=== PATIENT | female | born 1980 | race Caucasian/White ===

== ENCOUNTER 2016-12-26 14:39 | Emergency (ER) | payer OTHER ==
[~2016-12-26] VITALS: Ht 165.1 cm; Wt 60.7 kg
[~2016-12-26 14:39] MED LIST: BIOTCAP PO; FLUT1SPR5 EACH NARE; GABA300C5 PO; GLYC1TAB15 PO; LITH300T PO; METR500T10 PO; MIRA33504 PO; MULTTAB6; PANT20 PO
[2016-12-26 14:44] VITALS: BP 128/93; PULSE 83; RESP 16; TEMP 97.7; O2SAT 99
[2016-12-26] MEDS ORDERED: ALUMINUM/MAGNESIUM/SIMETH 30 ML CUP PO ONE (15:00)
[2016-12-26] MEDS ORDERED: LIDOCAINE VISCOUS 2% SOLN 15 ML UDC PO ONE (15:00)
[2016-12-26] MEDS ORDERED: ONDANSETRON HCL 4 MG/2 ML VIAL IVP ONE (15:00)
[2016-12-26] MEDS ORDERED: SODIUM CHLORIDE 0.9% FLUSH 10 ML FLUSH IV FLUSH PRN (15:00)
[2016-12-26] MEDS ORDERED: LITH300C2 PO (15:00)
[2016-12-26] MEDS ORDERED: ZANT150T2 PO (15:00)
[2016-12-26] MEDS ORDERED: OMEP20TA PO (15:00)
[2016-12-26] MEDS ORDERED: LITH600C PO (15:00)
--- NOTE | 2016-12-26 15:02 | PD ---
HPI Chief Complaint: GI Complaint Time Seen by Provider: 14:51 Travel History International Travel<30 days: No Contact w/Intl Traveler<30days: No Traveled to known affect area: No History of Present Illness HPI The patient was seen and examined in the presence of the nurse. She complains of abdominal pain. Location is epigastric and right upper quadrant. Severity is moderate. Duration is 2-3 weeks. She had an outpatient ultrasound of the right upper quadrant 3 days ago but never received any results. Denies fever. Had some nausea and heartburn which is a chronic problem. She takes antiacid medicine. She says that she let out a belch that help ease some of the discomfort. That was her only alleviating factor. PFSH Past Medical History Anxiety: Yes Depression: Yes Diminished Hearing: No ?: Not LMP: YESTERDAY : 2 Para: 0 Ovarian Cysts: Yes Tubal Ligation: Yes Past Surgical History Abdominal Surgery: Yes (Laparoscopy, Essure procedure) Other Surgery: Yes (Left breast lumpectomy) Social History Alcohol Use: No (DENIES) Tobacco Use: No Substance Use: No Allergies-Medications (Allergen,Severity, Reaction): Coded Allergies: Erythromycin (Verified Allergy, Mild, DIARRHEA, 12/26/16) Penicillin (Verified Allergy, Unknown, UNKNOWN, 12/26/16) Reported Meds & Prescriptions Reported Meds & Active Scripts Active Glycopyrrolate 2 Mg Tab 2 Mg PO BID Gabapentin 300 Mg Cap 300 Mg PO TID Reported Zantac (Ranitidine HCl) 150 Mg Tab Unknown Dose PO HS Omeprazole 20 Mg Tab Unknown Dose PO DAILY [place] Carbonate 600 Mg Cap 600 Mg PO DAILY [place] Carbonate 300 Mg Cap 300 Mg PO HS Review of Systems General / Constitutional: No: Fever Eyes: No: Visual changes HENT: No: Headaches Cardiovascular: No: Chest Pain or Discomfort Respiratory: No: Shortness of Breath Gastrointestinal: Positive: Nausea, Abdominal Pain Genitourinary: No: Dysuria Musculoskeletal: No: Pain Skin: No Rash Neurologic: No: Weakness Psychiatric: No: Depression Endocrine: No: Polydipsia Hematologic/Lymphatic: No: Easy Bruising Physical Exam Narrative GENERAL: Well-nourished, well-developed patient in no apparent distress. SKIN: Focused skin assessment reveals no rash and nodules. Skin is Warm and dry. HEAD: Atraumatic. Normocephalic. EYES: Pupils equal and round. No scleral icterus. No injection or drainage. ENT: No nasal bleeding or discharge. Mucous membranes pink and moist. NECK: Trachea midline. No JVD. CARDIOVASCULAR: Regular rate and rhythm. No murmur appreciated. RESPIRATORY: No accessory muscle use. Clear to auscultation. Breath sounds equal bilaterally. GASTROINTESTINAL: Abdomen soft, epigastric and right upper quadrant tenderness but no rebound or guarding, nondistended. Hepatic and splenic margins not palpable. MUSCULOSKELETAL: No obvious deformities. No clubbing. No cyanosis. No edema. NEUROLOGICAL: Awake and alert. No obvious cranial nerve deficits. Motor grossly within normal limits. Normal speech. PSYCHIATRIC: Appropriate mood and affect; insight and judgment normal. Data Data Last Documented VS Vital Signs Date Time Temp Pulse Resp B/P Pulse Ox O2 Delivery O2 Flow Rate FiO2 12/26/16 14:44 97.7 83 16 128/93 99 Orders Complete Blood Count With Diff (12/26/16 14:58) Comprehensive Metabolic Panel (12/26/16 14:58) Lipase (12/26/16 14:58) Iv Access Insert/Monitor (12/26/16 14:58) Ondansetron Inj (Zofran Inj) (12/26/16 15:00) Sodium Chloride 0.9% Flush (Ns Flush) (12/26/16 15:00) Al-Mag Hy-Si 40-40-4 Mg/Ml Liq (Mag-Al P (12/26/16 15:00) Lidocaine 2% Viscous (Xylocaine 2% Visco (12/26/16 15:00) Labs Laboratory Tests Test 12/26/16 15:00 White Blood Count 11.8 TH/MM3 Red Blood Count 4.23 MIL/MM3 Hemoglobin 13.0 GM/DL Hematocrit 37.0 % Mean Corpuscular Volume 87.4 FL Mean Corpuscular Hemoglobin 30.8 PG Mean Corpuscular Hemoglobin 35.2 % Concent Red Cell Distribution Width 11.6 % Platelet Count 219 TH/MM3 Mean Platelet Volume 9.2 FL Neutrophils (%) (Auto) 73.1 % Lymphocytes (%) (Auto) 20.0 % Monocytes (%) (Auto) 5.8 % Eosinophils (%) (Auto) 1.1 % Basophils (%) (Auto) 0.0 % Neutrophils # (Auto) 8.6 TH/MM3 Lymphocytes # (Auto) 2.4 TH/MM3 Monocytes # (Auto) 0.7 TH/MM3 Eosinophils # (Auto) 0.1 TH/MM3 Basophils # (Auto) 0.0 TH/MM3 CBC Comment DIFF FINAL Differential Comment Sodium Level 140 MEQ/L Potassium Level 3.2 MEQ/L Chloride Level 104 MEQ/L Carbon Dioxide Level 27.7 MEQ/L Anion Gap 8 MEQ/L Blood Urea Nitrogen 10 MG/DL Creatinine 0.85 MG/DL Estimat Glomerular Filtration 76 ML/MIN Rate Random Glucose 116 MG/DL Calcium Level 8.6 MG/DL Total Bilirubin 0.5 MG/DL Aspartate Amino Transf 23 U/L (AST/SGOT) Alanine Aminotransferase 24 U/L (ALT/SGPT) Alkaline Phosphatase 59 U/L Total Protein 7.0 GM/DL Albumin 3.7 GM/DL Lipase 209 U/L [facility] Medical Decision Making Medical Screen Exam Complete: Yes Emergency Medical Condition: Yes Medical Record Reviewed: Yes Differential Diagnosis Differential diagnosis includes pancreatitis, biliary colic, hepatitis, GERD, peptic ulcer disease. Narrative Course I have reviewed the patient's electronic medical record. Patient was seen here for abdominal pain in 2012 IV placed CBC is normal Metabolic profile is normal LFTs are normal Lipase is normal I gave her a dose of IV Zofran followed by Maalox/lidocaine combination On recheck she feels improved I did review her outpatient ultrasound which was read 2 days ago. She does have gallbladder distention but there is no gallstone or per cholecystic fluid or gallbladder wall thickening to suggest acute cholecystitis Patient had significant improvement after Maalox/lidocaine which I would not expect if she was having biliary colic She is going to call her primary physician Wednesday to get follow-up and discuss the gallbladder results She declines pain and nausea medication Stable for outpatient follow-up Diagnosis Primary Impression: Epigastric pain Additional Instructions: The patient was advised to follow up with their physician and return if they worsen. Utilize a low-fat bland diet Med/Other Pt SpecificInfo: Other Disposition: 01 DISCHARGE HOME Condition: Stable John Frederick MD Dec 26, 2016 15:02
[2016-12-26 15:11] LABS: AUTOMATED NEUTROPHIL # 8.6 TH/MM3 (1.8-7.7); EOSINOPHIL # 0.1 TH/MM3 (0-0.4); EOSINOPHIL % 1.1 % (0.0-4.0); HEMO FLAGS DIFF FINAL; LYMPHOCYTE # 2.4 TH/MM3 (1.0-4.8); MEAN CELL VOLUME 87.4 FL (80.0-100.0); MEAN CORPUSCULAR HEMOGLOBIN 30.8 PG (27.0-34.0); MEAN CORPUSCULAR HGB CONC 35.2 % (32.0-36.0); MONO % 5.8 % (0.0-8.0); NEUT % 73.1 % (16.0-70.0); PLATELET COUNT 219 TH/MM3 (150-450); RED BLOOD COUNT 4.23 MIL/MM3 (4.00-5.30); RED CELL DISTRIBUTION WIDTH 11.6 % (11.6-17.2); WHITE BLOOD COUNT 11.8 TH/MM3 (4.0-11.0)
[2016-12-26 15:20] LABS: CHLORIDE 104 MEQ/L (98-107); POTASSIUM 3.2 MEQ/L (3.5-5.1); SODIUM (NA) 140 MEQ/L (136-145)
[2016-12-26 15:24] LABS: ANION GAP 8 MEQ/L (5-15); BICARBONATE 27.7 MEQ/L (21.0-32.0); BLOOD UREA NITROGEN 10 MG/DL (7-18)
[2016-12-26 15:27] LABS: ALT (GPT) 24 U/L (10-53); AST (GOT) 23 U/L (15-37); GLOMERULAR FILTRATION RATE 76 ML/MIN (>89)
[2016-12-26 15:28] LABS: TOTAL BILIRUBIN ADULT 0.5 MG/DL (0.2-1.0)
[2016-12-26 15:29] LABS: ALKALINE PHOSPHATASE 59 U/L (45-117)
[2017-01-12] MEDS ORDERED: GABA300C5 PO (09:51)
[2017-01-12] MEDS ORDERED: GLYC1TAB17 PO (09:53)
[2017-01-12] MEDS ORDERED: LACT10SO PO (09:57)
[2017-01-12] MEDS ORDERED: LINA145C PO (09:57)
[2017-01-20] MEDS ORDERED: IPRA0.06 EACH NARE (15:26)
[2017-01-20] MEDS ORDERED: DOXY100C PO (15:26)
[2017-03-02] MEDS ORDERED: LITH300C2 PO (14:06)
[2017-03-02] MEDS ORDERED: OMEP40CA2 PO (14:06)
[2017-03-08] MEDS ORDERED: LITH300T PO (23:25)
[2017-03-10] MEDS ORDERED: ALPR.5 PO (16:51)
== END 2016-12-26 16:03 | disposition home or self-care (01) ==
LOC: PHED 14:39
DX: R10.13 Epigastric pain (principal); R11.0 Nausea; R12 Heartburn; F41.9 Anxiety disorder, unspecified; F32.9 Major depressive disorder, single episode, unspecified
CPT/HCPCS: 80053; 83690; 85025; 96374; 99284; J2405

== ENCOUNTER 2018-04-02 09:40 | Inpatient (IN) ==
[2018-04-02] MEDS ORDERED: Sod Chloride 0.9% Inj 1,000 ML IV.SIG ONE ×2 (10:01→11:15)
[2018-04-02] MEDS ORDERED: Ketorolac Inj 30 MG/ML (IVP) Vial IV.PUSH ONE (10:01)
[2018-04-02 10:20] LABS: Baso # (Auto) 0.1 th/mm3 (0.0-0.2); Baso % (Auto) 0.4 % (0.0-2.0); Eos % (Auto) 0.1 % (0.0-4.0); Hemoglobin 11.4 gm/dL (11.6-15.3); Lymph # (Auto) 1.2 th/mm3 (1.0-4.8); Lymph % (Auto) 3.6 % (9.0-44.0); Mean Corpuscular HGB Conc 33.7 % (32.0-36.0); Mean Corpuscular Hemoglobin 30.5 pg (27.0-34.0); Mean Corpuscular Volume 90.6 fL (80.0-100.0); Mean Platelet Volume 10.4 fL (7.0-11.0); Mono # (Auto) 0.6 th/mm3 (0.0-0.9); Mono % (Auto) 1.8 % (0.0-8.0); Neut # (Auto) 31.9 th/mm3 (1.8-7.7); Neut % (Auto) 94.1 % (16.0-70.0); Platelet Count 379 th/mm3 (150-450); Red Blood Count 3.75 mil/mm3 (4.00-5.30); Red Cell Distribution Width 11.9 % (11.6-17.2); White Blood Count 33.8 th/mm3 (4.0-11.0)
[2018-04-02 10:29] LABS: Potassium 3.9 meq/L (3.5-5.1)
[2018-04-02 10:32] LABS: Calcium 8.6 mg/dL (8.5-10.1)
[2018-04-02] MEDS ORDERED: Morphine Inj 4 MG/ML Vial IV.PUSH ONE ×2 (10:32→11:15)
[2018-04-02 10:33] LABS: Albumin 3.9 g/dL (3.4-5.0); Carbon Dioxide 19.3 meq/L (21.0-32.0)
[2018-04-02 10:37] LABS: Total Protein 7.7 g/dL (6.4-8.2)
[2018-04-02 11:26] LABS: Lymphocytes 4 % (9-44); Monocytes 4 % (0-8); Path Slide Review N; Platelet Morphology Normal (Normal); RBC Morphology Normal (Normal)
--- NOTE | 2018-04-02 11:30 | ED ---
HPI General Chief complaint: Abdominal Pain Stated complaint: Upper Abd pain since last night Time Seen by Provider: 04/02/18 09:54 Source: patient Mode of arrival: ambulatory Limitations: no limitations History of Present Illness HPI narrative: Patient is a 37-year-old female who comes in complaining of abdominal pain. She says this started last night, and has been severe. She did not take anything for pain at home, she says she does not like taking medications. She said she had an ultrasound of her gallbladder performed on Wednesday, but she does not know the results. She denies fever chills. She has had some nausea, but no vomiting. She denies any urinary symptoms. She says the pain is in the upper part of her abdomen and wraps around to the back as well as goes to her shoulders. Severity is moderate. Treatments prior to arrival: none Related Data Home Medications Medication Instructions Recorded Confirmed buspirone 10 mg PO BID 04/02/18 04/02/18 gabapentin 300 mg PO 5 TIMES A DAY 04/02/18 04/02/18 lithium aspartate 60 mg PO BID 04/02/18 04/02/18 omeprazole 40 mg PO DAILY 04/02/18 04/02/18 Allergies Allergy/AdvReac Type Severity Reaction Status Date / Time erythromycin base Allergy Mild DIARRHEA Verified 04/02/18 09:54 penicillin G Allergy Unknown UNKNOWN Verified 04/02/18 09:54 Review of Systems Except as stated in HPI: all other systems reviewed are negative Constitutional Denies chills and Denies fever(s) ENT Denies dizziness Cardiovascular Denies chest pain Respiratory Denies dyspnea Gastrointestinal Reports abdominal pain, Reports nausea and Denies vomiting Genitourinary Denies dysuria Musculoskeletal Denies myalgias and Denies arthralgias Integumentary/Breasts Denies change in pigmentation and Denies lesions Neurologic Denies focal weakness [facility] Medical History Medical History Bipolar 1 disorder (Acute) Fibromyalgia (Acute) GERD (gastroesophageal reflux disease) (Acute) Pelvic floor dysfunction (Acute) Surgical History Surgical History H/O laparoscopy (Acute) H/O tubal ligation (Acute) Social History Social History Substance History: No History of Abuse Second Hand Smoke Exposure: No Smoking Status: Never smoker How Often Do You Have a Drink Containing Alcohol: Never Recent Travel in [facility] within the Last 8 Weeks: No Recent Out of Country Travel within the Last 8 Weeks: No Immunization History Tetanus Immunization: Unsure Hx Influenza Vaccine This Season: No Exam Narrative Exam Narrative: GENERAL: Awake and alert, in moderate distress due to pain. SKIN: Focused skin assessment warm/dry. HEAD: Atraumatic. Normocephalic. EYES: Pupils equal and round. No scleral icterus. ENT: Mucous membranes pink and moist. NECK: Trachea midline. No JVD. CARDIOVASCULAR: Regular rate and rhythm. No murmur appreciated. RESPIRATORY: No accessory muscle use. Clear to auscultation. Breath sounds equal bilaterally. GASTROINTESTINAL: Abdomen soft, nondistended. Abdomen diffusely tender to palpation, voluntary guarding, no rebound. MUSCULOSKELETAL: No obvious deformities. No clubbing. No cyanosis. No edema. NEUROLOGICAL: Awake and alert. No obvious cranial nerve deficits. Motor grossly within normal limits. Normal speech. PSYCHIATRIC: Appropriate mood and affect; insight and judgment normal. Course Hospital Course: IV established, labs sent. Patient given IVF, Toradol. She first said she did not want pain medicine, then agreed to take some Morphine. CT abd/pelvis ordered. Reevaluation(s) Reevaluation #1: Patient has white blood cell count of 33. Lactic acid added. Patient still complaining of significant pain, says she is unable to lay down for the CAT scan. Additional morphine and Versed ordered. Time: 10:42 Reevaluation #2: Lactic acid elevated to 6.8. Additional fluid ordered. Antibiotics ordered. Time: 12:00 Reevaluation #3: CT abdomen pelvis concerning for free fluid in the abdomen. Dr. Duvall of general surgery consulted, he will take the patient to the OR. Arrangements made for emergency transfer to the main hospital. Flagyl added to Rocephin coverage. Time: 13:00 Initial Documented Vital Signs Temperature 97.8 F 04/02/18 09:50 Pulse Rate 115 H 04/02/18 09:50 Respiratory Rate 22 04/02/18 09:50 Blood Pressure 106/69 04/02/18 09:50 Pulse Oximetry 100 04/02/18 09:50 Last Documented Vital Signs Temperature 97.8 F 04/02/18 09:50 Pulse Rate 115 H 04/02/18 13:16 Respiratory Rate 20 04/02/18 13:16 Blood Pressure 109/86 04/02/18 13:16 Pulse Oximetry 98 04/02/18 13:16 Medical Decision Making MDM Narrative Medical decision making narrative: Patient is a 37-year-old female who comes in complaining of severe abdominal pain. Exam shows diffuse tenderness to palpation. IV established, labs sent. At first, patient refused pain medication. She took Toradol, then of insisted she was still in the severe pain. She was convinced to take morphine. Labs showed a white blood cell count of 33, lactic acid was added. Patient wanted to refuse CAT scan, says that she was in too much pain to lie flat. She said she would rather just follow-up with her doctor on Wednesday and have the scan done as an outpatient. I explained to her that she is very sick and we need to find the source of the infection. She was agreeable to more pain medicine. Given morphine and Versed. After these medications, we were able to obtain a CT scan that showed free fluid in her abdomen. General surgery was consulted immediately. She had already received Rocephin, Flagyl added. Dr. Duvall of general surgery will take the patient to the OR. Emergency transfer arranged with [facility]. Admitted to Dr. Duvall's service. Differential Diagnosis Differential Diagnosis: Cholecystitis versus choledocholithiasis versus appendicitis versus colitis versus ruptured viscus Medical Records Medical records reviewed: Yes I reviewed the patient's medical records. POC Test Results POC Urine Results: Negative Lab Data Lab results reviewed: Yes I reviewed the patient's lab results. Result diagrams: 04/02/18 10:15 04/02/18 10:15 Lab Results 04/02/18 04/02/18 04/02/18 Range/Units 10:15 10:15 11:25 CBC w Diff Slide review pending WBC 33.8 H (4.0-11.0) th/mm3 RBC 3.75 L (4.00-5.30) mil/mm3 Hgb 11.4 L (11.6-15.3) gm/dL Hct 34.0 L (35.0-46.0) % MCV 90.6 (80.0-100.0) fL MCH 30.5 (27.0-34.0) pg MCHC 33.7 (32.0-36.0) % RDW 11.9 (11.6-17.2) % Plt Count 379 (150-450) th/mm3 MPV 10.4 (7.0-11.0) fL Neut % (Auto) 94.1 H (16.0-70.0) % Lymph % (Auto) 3.6 L (9.0-44.0) % Piatt % (Auto) 1.8 (0.0-8.0) % Eos % (Auto) 0.1 (0.0-4.0) % Baso % (Auto) 0.4 (0.0-2.0) % Neut # (Auto) 31.9 H (1.8-7.7) th/mm3 Lymph # (Auto) 1.2 (1.0-4.8) th/mm3 Piatt # (Auto) 0.6 (0.0-0.9) th/mm3 Eos # (Auto) 0.0 (0.0-0.4) th/mm3 Baso # (Auto) 0.1 (0.0-0.2) th/mm3 WBC Differential Manual diff final Seg Neuts % (Manual) 80 H (16-70) % Band Neuts % (Manual) 12 H (0-6) % Lymphocytes % (Manual) 4 L (9-44) % Monocytes % (Manual) 4 (0-8) % Abs Neuts (Manual) 31.1 H (1.8-7.7) th/mm3 Differential Comment . Platelet Morphology Normal (Normal) RBC Morphology Normal (Normal) Sodium 137 (136-145) meq/L Potassium 3.9 (3.5-5.1) meq/L Chloride 103 (98-107) meq/L Carbon Dioxide 19.3 L (21.0-32.0) meq/L Anion Gap 15 (5-15) meq/L BUN 15 (7-18) mg/dL Creatinine 1.30 H (0.50-1.00) mg/dL Estimated GFR 46 L (>89) mL/min Random Glucose 207 H (74-106) mg/dL Lactic Acid 6.8 H* (0.4-2.0) mmol/L Calcium 8.6 (8.5-10.1) mg/dL Total Bilirubin 0.7 (0.2-1.0) mg/dL Direct Bilirubin 0.1 (0.0-0.2) mg/dL Indirect Bilirubin 0.6 (0.0-0.8) mg/dL AST 17 (15-37) U/L ALT 19 (10-53) U/L Alkaline Phosphatase 51 (45-117) U/L Total Protein 7.7 (6.4-8.2) g/dL Albumin 3.9 (3.4-5.0) g/dL Lipase 148 (73-393) U/L Ur Collection Type Urine Color (Yellw/Straw) Urine Clarity (Clear) Urine pH (5.0-8.5) Ur Specific [place] (1.002-1.035) Urine Protein (Neg-Trace) mg/dL Urine Glucose (UA) (Negative) mg/dL Urine Ketones (Negative) mg/dL Urine Occult Blood (Negative) Urine Nitrate (Negative) Urine Bilirubin (Negative) Urine Urobilinogen (Less than 2) mg/dL Ur Leukocyte Esterase (Negative) Urine RBC (0-3) /hpf Urine WBC (0-5) /hpf Ur Squamous Epith Cells (0-5) /hpf Micro UA Comment Urine Culture Comments Urine Collection Time hours 04/02/18 Range/Units 13:10 CBC w Diff WBC (4.0-11.0) th/mm3 RBC (4.00-5.30) mil/mm3 Hgb (11.6-15.3) gm/dL Hct (35.0-46.0) % MCV (80.0-100.0) fL MCH (27.0-34.0) pg MCHC (32.0-36.0) % RDW (11.6-17.2) % Plt Count (150-450) th/mm3 MPV (7.0-11.0) fL Neut % (Auto) (16.0-70.0) % Lymph % (Auto) (9.0-44.0) % [place] % (Auto) (0.0-8.0) % Eos % (Auto) (0.0-4.0) % Baso % (Auto) (0.0-2.0) % Neut # (Auto) (1.8-7.7) th/mm3 Lymph # (Auto) (1.0-4.8) th/mm3 [place] # (Auto) (0.0-0.9) th/mm3 Eos # (Auto) (0.0-0.4) th/mm3 Baso # (Auto) (0.0-0.2) th/mm3 WBC Differential Seg Neuts % (Manual) (16-70) % Band Neuts % (Manual) (0-6) % Lymphocytes % (Manual) (9-44) % Monocytes % (Manual) (0-8) % Abs Neuts (Manual) (1.8-7.7) th/mm3 Differential Comment Platelet Morphology (Normal) RBC Morphology (Normal) Sodium (136-145) meq/L Potassium (3.5-5.1) meq/L Chloride (98-107) meq/L Carbon Dioxide (21.0-32.0) meq/L Anion Gap (5-15) meq/L BUN (7-18) mg/dL Creatinine (0.50-1.00) mg/dL Estimated GFR (>89) mL/min Random Glucose (74-106) mg/dL Lactic Acid (0.4-2.0) mmol/L Calcium (8.5-10.1) mg/dL Total Bilirubin (0.2-1.0) mg/dL Direct Bilirubin (0.0-0.2) mg/dL Indirect Bilirubin (0.0-0.8) mg/dL AST (15-37) U/L ALT (10-53) U/L Alkaline Phosphatase (45-117) U/L Total Protein (6.4-8.2) g/dL Albumin (3.4-5.0) g/dL Lipase (73-393) U/L Ur Collection Type Clean catch Urine Color Yellow (Yellw/Straw) Urine Clarity Clear (Clear) Urine pH 6.0 (5.0-8.5) Ur Specific [place] Less/equal 1.005 (1.002-1.035) Urine Protein Negative (Neg-Trace) mg/dL Urine Glucose (UA) Negative (Negative) mg/dL Urine Ketones Negative (Negative) mg/dL Urine Occult Blood Negative (Negative) Urine Nitrate Negative (Negative) Urine Bilirubin Negative (Negative) Urine Urobilinogen 0.2 (Less than 2) mg/dL Ur Leukocyte Esterase Negative (Negative) Urine RBC 0-3 (0-3) /hpf Urine WBC 0-5 (0-5) /hpf Ur Squamous Epith Cells 0-5 (0-5) /hpf Micro UA Comment Culture not ind Urine Culture Comments Culture not ind Urine Collection Time 1310 hours Imaging Data Radiologist's impression: Abdomen/Pelvis CT 04/02/18 10:01 CONCLUSION: 1. Significantly abnormal exam with a large amount of free fluid identified throughout the abdomen or pelvis. There is abnormal focus of extraluminal air adjacent to a dilated segment of the duodenum. Concern is for a ruptured ulcer. 2. Displaced tubal ligation clips within the anterior pelvis and the left occlusion device appears also displaced laterally within the pelvis. Discharge Plan Discharge Disposition Patient Disposition: 30 Still Patient Discharge Condition Condition: Stable Discharge Details Diagnosis: Duodenal ulcer perforation, Sepsis, Acidosis, lactic Physicians Team ED Provider: Cinthya Samuels Primary Care Provider: Jadiel May Attending Provider: Reyes Duvall Interventions Interventions: ED Discharge Assessment Last Done: 04/02/18 13:41 Vital Signs Last Done: 04/02/18 13:16 Status ED Status: Left Department Discharge Information Discharge Date/Time: 04/02/18 13:41
[2018-04-02] MEDS ORDERED: Phenylephrine/NS 1000 MCG/10ML Syringe IV.PUSH ONE (12:00)
[2018-04-02] MEDS ORDERED: Lidocaine PF 1% Inj 5 ML Syringe INFILTRATN ONE (12:00)
--- NOTE | 2018-04-02 13:00 | CT ---
EXAM DATE: 04/02/2018 12:51 PM EDT AGE/SEX: 37 years / Female INDICATIONS: Upper Abdomen pain 1 day CLINICAL DATA: This is the patient's initial encounter. Patient reports that signs and symptoms have been present for 1 day and indicates a pain score of 10/10. MEDICAL/SURGICAL HISTORY: Gastroesophageal reflux disease. Fibromyalgia Tubal ligation. ORAL CONTRAST: No oral contrast ingested. RADIATION DOSE: 5.36 CTDI (mGy) COMPARISON: [facility], CT ABDOMEN AND PELVIS W/ CONTRAST, 01/18/2017. [facility], [place] BARIUM ENEMA-AIR CONTRAST , 02/23/2017. . TECHNIQUE: Multiple contiguous axial images were obtained through the abdomen and pelvis following b olus infusion of 98ML ml Omnipaque 350 (iohexol) nonionic water-soluble contrast as a single exam d ose. No oral contrast ingested. Using automated exposure control and adjustment of the mA and/or kV according to patient size, radiation dose was kept as low as reasonably achievable to obtain optimal diagnostic quality images. DICOM format image data is available electronically for review and compar reena. FINDINGS: This is a significantly abnormal exam. There is a large amount of free fluid identified thr oughout the abdomen and pelvis. There is an area of abnormal extraluminal air adjacent to the proxima l portion of the duodenum where there is adjacent dilation of the duodenum and dilation of the stomac h. Concern is for a ruptured ulcer. Lower Lungs: The visualized lower lungs are clear. Liver: The liver has a homogeneous density without space-occupying lesion. There is no dilation of th e biliary tree. Spleen: Homogeneous density without enlargement. Pancreas: Unremarkable without mass or calcification. Kidneys: Normal in size and shape. No evidence of mass or hydronephrosis. Adrenal Glands: Unremarkable. Aorta: The aorta and proximal iliac vessels are grossly unremarkable without aneurysmal dilation. Bowel/Mesentery: The bowel loops are grossly unremarkable. The cecum and sigmoid colon have a normal configuration. Abdominal Wall: Intact. Retroperitoneum: No evidence of adenopathy in the retrocrural, para-aortic, or deep pelvic regions. Bladder: Contours are smooth. Reproductive Organs: There are bilateral tubal ligation clips which are displaced anteriorly and sup eriorly within the pelvis. Bilateral tubal occlusion devices are present. The right device appears in a normal location the left device appears displaced into the pelvis. Inguinal: The inguinal region is unremarkable without evidence of adenopathy. Bony Structures: Unremarkable. CONCLUSION: 1. Significantly abnormal exam with a large amount of free fluid identified throughout the abdomen o r pelvis. There is abnormal focus of extraluminal air adjacent to a dilated segment of the duodenum. Concern is for a ruptured ulcer. 2. Displaced tubal ligation clips within the anterior pelvis and the left occlusion device appears a lso displaced laterally within the pelvis. Electronically signed by: Val Molina MD 04/02/2018 12:59 PM EDT
[2018-04-02] MEDS ORDERED: HYDROmorphone PF Inj 1 MG/ML Ampul IV.PUSH ONE (13:13)
[2018-04-02 13:28] LABS: Bilirubin,Urine Negative (Negative); Clarity,Urine Clear (Clear); Color,Urine Yellow (Yellw/Straw); Glucose,Urine (UA) Negative (Negative); Leukocyte Esterase,Urine Negative (Negative); Nitrite,Urine Negative (Negative); Specific Gravity,Urine Less/Equal 1.005 (1.002-1.035); Urobilinogen,Urine 0.2 mg/dL (Less than 2)
[2018-04-02 13:34] LABS: Collection Time,Urine 1310 hours; WBC,Urine 0-5 /hpf (0-5)
[2018-04-02 13:35] LABS: RBC,Urine 0-3 /hpf (0-3); Squamous Epithelial Cell,Urine 0-5 /hpf (0-5)
[2018-04-02] MEDS ORDERED: Sugammadex Inj 200 MG/2 ML Vial IV.PUSH ONE (14:48)
--- NOTE | 2018-04-02 15:08 | P.HPGS ---
History of Present Illness Service: General surgery Primary Care Physician: Jadiel May MD Chief Complaint: Abdominal pain History of Present Illness: 37-year-old female who developed severe upper abdominal pain last night associated with nausea. She presented to the emergency department and was noted to have peritoneal signs and leukocytosis of 33,000 with a lactic acid of nearly 7. CT of the abdomen and pelvis shows free fluid. She has recently been having some various abdominal pain in the left lower abdomen and in the upper abdomen on exam and her primary physician ordered a gallbladder ultrasound earlier this week. Results are not back. She takes omeprazole and she and her mother relate that she has a remote history of gastric ulcers but they are under sure if she ever had an endoscopy. The patient relates that she has history of severe constipation and "pelvic floor dysfunction". She has a bowel movement about every 5 days. Past surgical history includes laparoscopic tubal ligation. She has bipolar disorder and is on lithium. - Diagnosis (1) Perforated abdominal viscus (2) Acidosis, lactic Inpatient Certification: I certify that the inpatient services were ordered in accordance with Medicare regulations governing the order. This includes certification that hospital inpatient services are reasonable and necessary and in the case of services not specified as inpatient-only under 42 CFR 419.22(n), that they are appropriately provided as inpatient services in accordance to with the 2-midnight benchmark under 43 CFR 412.3(e) Estimated Total Length of Stay (Days): 5 Plans for Post Hospital Care: Home Review of Systems All other systems reviewed negative except as stated in HPI PMFSH - History History Provided By: Patient - Medical History Medical History: Medical History (Last Reviewed 04/02/18 @ 11:29 by Cinthya Samuels MD) Bipolar 1 disorder Fibromyalgia GERD (gastroesophageal reflux disease) Pelvic floor dysfunction - Surgical History Surgical History: Surgical History (Last Reviewed 04/02/18 @ 11:29 by Cinthya Samuels MD) H/O laparoscopy H/O tubal ligation - Tobacco History Second Hand Smoke Exposure: No Smoking Status: Never smoker - Alcohol History How Often Do You Have a Drink Containing Alcohol: Never - Substance Use History Substance History: No History of Abuse - Travel History Recent Travel in the [place] Within the Last 8 Weeks: No Recent Travel Out of the Country Within the Last 8 Weeks: No - Immunization History Tetanus Immunization: Unsure Hx Influenza Vaccine This Season: No Medications and Allergies Active Medications: Active Medications Sodium Chloride (Ns Flush) 2 ml IV.FLUSH PRN PRN PRN Reason: FLUSH AFTER USING IV ACCESS Allergies Allergy/AdvReac Type Severity Reaction Status Date / Time erythromycin base Allergy Mild DIARRHEA Verified 04/02/18 09:54 penicillin G Allergy Unknown UNKNOWN Verified 04/02/18 09:54 Home Medications Medication Instructions Recorded Confirmed Type buspirone 10 mg PO BID 04/02/18 04/02/18 History gabapentin 300 mg PO 5 TIMES A DAY 04/02/18 04/02/18 History lithium aspartate 60 mg PO BID 04/02/18 04/02/18 History omeprazole 40 mg PO DAILY 04/02/18 04/02/18 History Exam Vital signs: Vital Signs 04/02/18 09:50 04/02/18 11:06 04/02/18 11:38 Temperature 97.8 F Pulse Rate 115 H 110 H 105 H Respiratory Rate 22 20 20 Blood Pressure 106/69 114/68 107/85 Pulse Oximetry 100 100 96 04/02/18 13:07 04/02/18 13:16 Temperature Pulse Rate 115 H Respiratory Rate 7 L 20 Blood Pressure 109/86 Pulse Oximetry 98 Intake & Output 04/01/18 04/02/18 04/02/18 18:59 06:59 18:59 Weight 60.5 kg Narrative: GENERAL: Awake and alert. No acute distress. Cooperative. HEAD: Normocephalic. Atraumatic. EYES: Pupils equal round and reactive to light bilaterally. No scleral icterus. ENT: Moist oral mucosa. NECK: Trachea midline. Pulmonary: Nonlabored breathing. No respiratory distress. CARDIOVASCULAR: Regular rate and rhythm. ABDOMEN: Diffuse severe tenderness to palpation with rebound. Moderate distention. EXTREMITIES: No cyanosis or edema. SKIN: Warm, dry, nonjaundiced. Results - Results CT scan - abdomen: report reviewed, image reviewed CT scan - pelvis: report reviewed, image reviewed Caprini VTE Risk Assessment Caprini VTE Risk Assessment: No/Low Risk (score <= 1) Caprini Risk Assessment Model: Point Value = 1 Point Value = 2 Point Value = 3 Point Value = 5 Age 41-60 Minor surgery BMI > 25 kg/m2 Swollen legs Varicose veins or History of unexplained or recurrent spontaneous Oral contraceptives or hormone replacement Sepsis (< 1 month) Serious lung disease, including pneumonia (< 1 month) Abnormal pulmonary function Acute myocardial infarction Congestive heart failure (< 1 month) History of inflammatory bowel disease Medical patient at bed rest Age 61-74 Arthroscopic surgery Major open surgery (> 45 min) Laparoscopic surgery (> 45 min) Malignancy Confined to bed (> 72 hours) Immobilizing plaster cast Central venous access Age >= 75 History of VTE Family history of VTE Factor V Leiden Prothrombin [id number] Lupus anticoagulant Anticardiolipin antibodies Elevated serum homocysteine Heparin-induced thrombocytopenia Other congenital or acquired thrombophilia Stroke (< 1 month) Elective arthroplasty Hip, pelvis, or leg fracture Acute spinal cord injury (< 1 month) Prophylaxis Regimen: Total Risk Factor Score Risk Level Prophylaxis Regimen 0-1 Low Early ambulation 2 Moderate Order ONE of the following: *Sequential Compression Device (SCD) *Heparin 5000 units SQ BID 3-4 Higher Order ONE of the following medications: *Heparin 5000 units SQ TID *Enoxaparin/Lovenox 40 mg SQ daily (WT < 150 kg, CrCl > 30 mL/min) *Enoxaparin/Lovenox 30 mg SQ daily (WT < 150 kg, CrCl > 10-29 mL/min) *Enoxaparin/Lovenox 30 mg SQ BID (WT < 150 kg, CrCl > 30 mL/min) AND/OR *Sequential Compression Device (SCD) 5 or more Highest Order ONE of the following medications: *Heparin 5000 units SQ TID (Preferred with Epidurals) *Enoxaparin/Lovenox 40 mg SQ daily (WT < 150 kg, CrCl > 30 mL/min) *Enoxaparin/Lovenox 30 mg SQ daily (WT < 150 kg, CrCl > 10-29 mL/min) *Enoxaparin/Lovenox 30 mg SQ BID (WT < 150 kg, CrCl > 30 mL/min) AND *Sequential Compression Device (SCD) Assessment and Plan - Assessment (1) Perforated abdominal viscus Status: Acute (2) Acidosis, lactic Code(s): E87.2 - Acidosis Status: Acute - Plan The patient has an evaluation consistent with a perforated viscus based on exam , lab work, and CT. There is no pneumoperitoneum but there is fair amount of free fluid. Most common differential would be perforated peptic ulcer versus diverticulitis. I discussed multiple possibilities with the patient. We will proceed with diagnostic laparoscopy possible laparotomy possible bowel resection. She understands that if this is perforated diverticulitis there is a chance of requiring colostomy. Discussed the situation in detail with the patient as well as her mother and she desires to proceed to the operating room.
[2018-04-02] MEDS ORDERED: Bupivacaine/Epinephrine 0.5% Inj 50 ML Vial ONE (15:12)
[2018-04-02] MEDS ORDERED: Naloxone Inj 0.4 MG/ML Vial IV.PUSH PRN (16:27)
[2018-04-02] MEDS ORDERED: HYDROmorphone PF Inj 1 MG/ML Ampul IV.PUSH PRN (16:27)
[2018-04-02] MEDS ORDERED: Promethazine 25 MG Supp RECTAL PRN (16:27)
[2018-04-02] MEDS ORDERED: Post-op Orders (for Pharmacy) OTHER ONE (16:27)
--- NOTE | 2018-04-02 16:43 | P.OP ---
- Preoperative Diagnosis (1) Acidosis, lactic (2) Perforated abdominal viscus - Postoperative Diagnosis (1) Ovarian cyst rupture (2) Hemoperitoneum Date of procedure: 04/02/18 Procedure: Diagnostic laparoscopy Evacuation hemoperitoneum 1300cc Treatment of bleeding left ovarian cyst Anesthesia: GOMEZ Surgeon: Reyes Duvall MD Estimated blood loss (mL): 50 Pathology: none sent Operation and Findings: Operative findings: The patient had a large volume of hemoperitoneum approximately 1300 cc with the majority of it holding clotted. There was active bleeding at a fairly slow rate from the left ovary at site of a ruptured ovarian cyst. Hemostasis was achieved with electrocautery. The pneumoperitoneum was fully evacuated with the suction recovery engineer. Procedure in detail: The patient was taken to the operating room placed in supine position. General endotracheal anesthesia was induced and the abdomen was prepped and draped in usual sterile fashion. Surgical timeout was performed to verify correct patient procedure and site. Local anesthetic was injected in skin and subcutaneous tissue to the left of the umbilicus and a 5 mm incision made. 5 mm trocar inserted in direct lap scopic visualization and the abdomen insufflated to 15 mmHg with CO2 gas which the patient tolerated well. There is immediately noted to be a large volume of dark blood throughout the upper and lower abdomen with large clots in the lower abdomen. 2 more 5 mm ports were placed in the midabdomen and attention turned to the pelvis. This appeared to be likely due to a ruptured ovarian cyst and on inspection of both ovaries there was noted to be an involuted cyst in the left ovary with active bright red bleeding at a fairly slow rate. Both fallopian tubes have evidence of previous tubal ligation. Hemostasis was achieved at the site of bleeding with electrocautery. The right lower 5 mm port was changed to a 10 mm port. Using the 10 mm suction device clot and blood in the entire abdomen in all 4 quadrants is suctioned totaling at least 1300 cc in volume. The entire abdomen is then copiously irrigated until as much of the remaining blood is removed. There appears to be small amount of oozing still in the left ovary and Surgicel snow is used to provide further hemostasis. The abdomen is continued to be irrigated and on final exam there is no bleeding after removal of the Surgicel snow. I discussed with the welfare adviser on-call who is Dr. Norris about the operation and findings she recommended no further treatment if hemostasis is well achieved. At this point trochars were removed and a 12 mm fascial site closed with 0 Vicryl suture. Skin closed with subcuticular 4-0 Monocryl and Dermabond. The patient tolerated procedure well and was taken to PACU in stable condition.
[2018-04-02] MEDS ORDERED: *Meperidine Inj 25 MG/ML Vial PERIprocedural Use ONLY ONE (16:55)
[2018-04-02 17:02] LABS: Hematocrit 22.3 % (35.0-46.0); Hemoglobin 7.5 gm/dL (11.6-15.3)
[2018-04-02] MEDS ORDERED: fentaNYL Citrate Inj 100 MCG/2 ML Ampul ONE (17:05)
[2018-04-02] MEDS: Gabapentin 300 MG Capsule PO SCH ×2 (20:24→23:51)
[2018-04-02] MEDS: Senna/Docusate Sodium 8.6/50 MG Tablet PO SCH (20:24)
[2018-04-02] MEDS ORDERED: LITHIUM ASPARTATE PO SCH ×2 (21:00)
[2018-04-02 22:04] LABS: Hematocrit 21.8 % (35.0-46.0); Hemoglobin 7.3 gm/dL (11.6-15.3)
[2018-04-03] MEDS: Gabapentin 300 MG Capsule PO SCH ×5 (05:59→21:02)
[2018-04-03] MEDS ORDERED: Ibuprofen 400 MG Tablet PO PRN (09:14)
[2018-04-03] MEDS: Senna/Docusate Sodium 8.6/50 MG Tablet PO SCH ×2 (09:18→21:02)
--- NOTE | 2018-04-03 09:18 | P.PNGS ---
Subjective Interval history: Feels well. Some upper abdominal discomfort. No nausea. No flatus. Just trying some clears. Hgb last night 7.3, am pending. Physical Exam Vital signs: Vital Signs 04/02/18 09:50 04/02/18 11:06 04/02/18 11:38 Temperature 97.8 F Pulse Rate 115 H 110 H 105 H Respiratory Rate 22 20 20 Blood Pressure 106/69 114/68 107/85 Pulse Oximetry 100 100 96 04/02/18 13:07 04/02/18 13:16 04/02/18 16:45 Temperature 96.9 F L Pulse Rate 115 H 112 H Respiratory Rate 7 L 20 21 Blood Pressure 109/86 115/64 Pulse Oximetry 98 100 04/02/18 17:00 04/02/18 17:15 04/02/18 17:30 Temperature Pulse Rate 104 H 100 H 106 H Respiratory Rate 20 15 15 Blood Pressure 125/77 115/69 113/69 Pulse Oximetry 96 97 04/02/18 17:45 04/02/18 18:00 04/02/18 19:19 Temperature 97.6 F 98.8 F Pulse Rate 105 H 109 H 105 H Respiratory Rate 15 16 16 Blood Pressure 118/70 119/73 111/73 Pulse Oximetry 95 96 94 L 04/02/18 20:00 04/03/18 00:00 04/03/18 08:00 Temperature 98.5 F 98.6 F 98.6 F Pulse Rate 108 H 116 H 109 H Respiratory Rate 20 20 18 Blood Pressure 111/71 108/56 L 102/63 Pulse Oximetry 100 97 98 Intake & Output 04/02/18 04/03/18 04/03/18 18:59 06:59 18:59 Intake Total 3000 / 3000 3200 / 3200 Output Total 3600 / 3600 Balance -600 / -600 3200 / 3200 Weight 60.5 kg Intake: IV 3200 / 3200 LR 1000 mL Inj 1,000 ML @ 100 1000 / 1000 mls/hr IV.CONT .Q10H [facility] Rx#: [id number] Rocephin Inj 2,000 MG In NS Inj 100 / 100 100 ML @ 200 mls/hr IV.SIG ONCE ONE Rx#:[id number] Flagyl 500 MG Inj 100 ML @ 100 100 / 100 mls/hr IV.SIG ONCE ONE Rx#: [id number] Anesthesia Amount 3000 / 3000 Output: Estimated Blood Loss 1300 / 1300 Urine Amount (Catheter) 2300 / 2300 Indwelling Urethral Catheter 2300 / 2300 Narrative: No distress Somewhat tachycardic Abd: soft, moderate distention, inc c/d/i - Urinary Catheter Management Indwelling Urethral Catheter Cath placed during this visit: no Assessment and Plan - Assessment (1) Anemia due to blood loss, acute Code(s): D62 - Acute posthemorrhagic anemia Status: Acute (2) Ovarian cyst rupture Code(s): N83.209 - Unspecified ovarian cyst, unspecified side Status: Acute - Plan POD 1 lap evacuation hemoperitoneum and hemostatsis of bleeding ruptured ovarian cyst. Stable post op. F/u am labs if hgb < 7 will transfuse. Full liquids. Motrin for headache. Restart lithium.
[2018-04-03 09:27] LABS: Baso % (Auto) 0.1 % (0.0-2.0); Eos # (Auto) 0.1 th/mm3 (0.0-0.4); Eos % (Auto) 0.3 % (0.0-4.0); Lymph # (Auto) 2.4 th/mm3 (1.0-4.8); Lymph % (Auto) 12.8 % (9.0-44.0); Mean Corpuscular Volume 90.7 fL (80.0-100.0); Mean Platelet Volume 9.6 fL (7.0-11.0); Mono # (Auto) 1.1 th/mm3 (0.0-0.9); Mono % (Auto) 5.7 % (0.0-8.0); Neut # (Auto) 15.3 th/mm3 (1.8-7.7); Neut % (Auto) 81.1 % (16.0-70.0); Platelet Count 185 th/mm3 (150-450); Red Blood Count 2.18 mil/mm3 (4.00-5.30); Red Cell Distribution Width 12.7 % (11.6-17.2); White Blood Count 18.8 th/mm3 (4.0-11.0)
[2018-04-03 09:31] LABS: Hemoglobin 6.5 gm/dL (11.6-15.3)
[2018-04-03 09:32] LABS: Hematocrit 19.8 % (35.0-46.0)
[2018-04-03 09:54] LABS: Anion Gap 7 meq/L (5-15); Blood Urea Nitrogen 7 mg/dL (7-18); Calcium 8.2 mg/dL (8.5-10.1); Carbon Dioxide 25.7 meq/L (21.0-32.0); Chloride 113 meq/L (98-107); Glomerular Filtration Rate Greater Than 89 mL/min (>89); Glucose,Random 111 mg/dL (74-106); Potassium 3.6 meq/L (3.5-5.1); Sodium 146 meq/L (136-145)
[2018-04-04] MEDS: Gabapentin 300 MG Capsule PO SCH ×5 (05:18→21:37)
[2018-04-04 09:03] LABS: Baso % (Auto) 0.3 % (0.0-2.0); Eos # (Auto) 0.2 th/mm3 (0.0-0.4); Hematocrit 31.9 % (35.0-46.0); Hemoglobin 10.9 gm/dL (11.6-15.3); Lymph # (Auto) 2.6 th/mm3 (1.0-4.8); Lymph % (Auto) 15.5 % (9.0-44.0); Mean Corpuscular HGB Conc 34.2 % (32.0-36.0); Mean Corpuscular Hemoglobin 30.2 pg (27.0-34.0); Mean Corpuscular Volume 88.2 fL (80.0-100.0); Mean Platelet Volume 9.4 fL (7.0-11.0); Mono % (Auto) 6.2 % (0.0-8.0); Neut # (Auto) 12.8 th/mm3 (1.8-7.7); Platelet Count 250 th/mm3 (150-450); Red Blood Count 3.61 mil/mm3 (4.00-5.30); Red Cell Distribution Width 13.6 % (11.6-17.2); White Blood Count 16.6 th/mm3 (4.0-11.0)
[2018-04-04] MEDS: Senna/Docusate Sodium 8.6/50 MG Tablet PO SCH ×2 (09:13→20:01)
--- NOTE | 2018-04-04 11:45 | P.PNGS ---
Subjective Interval history: She is not tolerating much liquids and c/o nausea. Has some flatus and belching. No BM. Physical Exam Vital signs: Vital Signs 04/03/18 12:00 04/03/18 13:00 04/03/18 14:09 Temperature 98.4 F Pulse Rate 97 H Respiratory Rate 16 8 L 16 Blood Pressure 108/65 107/64 Pulse Oximetry 100 98 04/03/18 14:25 04/03/18 16:00 04/03/18 18:20 Temperature 99 F 98.8 F 97.9 F Pulse Rate 105 H 112 H 102 H Respiratory Rate 16 16 18 Blood Pressure 113/67 103/59 L 110/69 Pulse Oximetry 99 98 97 04/03/18 18:21 04/03/18 18:41 04/03/18 20:00 Temperature 97.9 F 98.1 F 98.3 F Pulse Rate 102 H 95 H 98 H Respiratory Rate 16 19 Blood Pressure 110/69 121/64 Pulse Oximetry 100 04/03/18 22:05 04/04/18 00:00 Temperature 98.3 F 98.4 F Pulse Rate 92 H 92 H Respiratory Rate 18 18 Blood Pressure 112/68 111/71 Pulse Oximetry 99 97 Intake & Output 04/03/18 04/04/18 04/04/18 18:59 06:59 18:59 Intake Total 3700 / 3700 1240 / 1240 1000 / 1000 Output Total 3000 / 3000 Balance 700 / 700 1240 / 1240 1000 / 1000 Intake: IV 1000 / 1000 1000 / 1000 1000 / 1000 LR 1000 mL Inj 1,000 ML @ 100 1000 / 1000 1000 / 1000 1000 / 1000 mls/hr IV.CONT .Q10H [facility] Rx#: [id number] Oral 1800 / 1800 240 / 240 Other 500 / 500 Intake (Blood Product) Amt 400 / 400 Rbc As-3 Leukoreduced Unit 400 / 400 [id number] Output: Urine 3000 / 3000 Other: Other Intake Source Saline Solution Rbc As-3 Leukoreduced Unit Saline Solution [id number] # Voids 4 # Bowel Movements 0 Narrative: No distress Abd: moderate distention, inc c/d/i - Urinary Catheter Management Indwelling Urethral Catheter Cath placed during this visit: yes, but has since been removed by the nurse Reason for continuing: Decision to DC catheter Removal date: 04/03/18 Removal time: 10:37 Assessment and Plan - Assessment (1) Anemia due to blood loss, acute Code(s): D62 - Acute posthemorrhagic anemia Status: Acute (2) Ovarian cyst rupture Code(s): N83.209 - Unspecified ovarian cyst, unspecified side Status: Acute - Plan POD 2. H/H improved dramatically after transfusion. She has a postoperative ileus. Continue liquids. Start reglan. Will need to stay until able to tolerate diet.
[2018-04-05 05:41] LABS: Hematocrit 30.5 % (35.0-46.0); Hemoglobin 10.5 gm/dL (11.6-15.3); Mean Corpuscular HGB Conc 34.3 % (32.0-36.0); Mean Corpuscular Hemoglobin 30.3 pg (27.0-34.0); Mean Corpuscular Volume 88.3 fL (80.0-100.0); Mean Platelet Volume 9.2 fL (7.0-11.0); Platelet Count 251 th/mm3 (150-450); Red Blood Count 3.46 mil/mm3 (4.00-5.30); White Blood Count 12.3 th/mm3 (4.0-11.0)
[2018-04-05] MEDS: Gabapentin 300 MG Capsule PO SCH ×2 (06:12→09:36)
[2018-04-05] MEDS: Senna/Docusate Sodium 8.6/50 MG Tablet PO SCH (09:36)
--- NOTE | 2018-04-05 10:27 | P.DS ---
Date of admission: 04/02/18 13:10 Primary care physician: Jadiel May MD Brief History from admission: 37-year-old female who developed severe upper abdominal pain last night associated with nausea. She presented to the emergency department and was noted to have peritoneal signs and leukocytosis of 33,000 with a lactic acid of nearly 7. CT of the abdomen and pelvis shows free fluid. She has recently been having some various abdominal pain in the left lower abdomen and in the upper abdomen on exam and her primary physician ordered a gallbladder ultrasound earlier this week. Results are not back. She takes omeprazole and she and her mother relate that she has a remote history of gastric ulcers but they are under sure if she ever had an endoscopy. The patient relates that she has history of severe constipation and "pelvic floor dysfunction". She has a bowel movement about every 5 days. Past surgical history includes laparoscopic tubal ligation. She has bipolar disorder and is on lithium. DS: Diagnosis - Discharge Diagnosis (1) Anemia due to blood loss, acute Status: Acute (2) Ovarian cyst rupture Status: Acute DS: Medications - Discharge Medications Prescriptions: ketorolac 10 mg PO Q6H PRN #20 tab PRN Reason: Pain DS: Summary Hospital Course: Post op required 2 U PRBC transfusion. H/H stabilized. Mild post op ileus, resolved. - Time Spent with Patient Total time spent providing and/or coordinating discharge services: - Quality: VTE Deep Vein Thrombosis/Pulmonary Embolism Present on Admission: No Exam Vital signs: Vital Signs 04/04/18 12:00 04/04/18 16:00 04/04/18 20:00 Temperature 98.0 F 98.1 F 98.4 F Pulse Rate 98 H 83 88 Respiratory Rate 19 18 17 Blood Pressure 117/83 116/76 142/88 H Pulse Oximetry 100 99 100 04/05/18 00:00 04/05/18 01:36 04/05/18 02:36 Temperature 98.7 F Pulse Rate 86 Respiratory Rate 17 18 18 Blood Pressure 122/71 Pulse Oximetry 98 04/05/18 08:00 Temperature 98.3 F Pulse Rate 70 Respiratory Rate 19 Blood Pressure 117/82 Pulse Oximetry 99 Intake & Output 04/04/18 04/05/18 04/05/18 18:59 06:59 18:59 Intake Total 2820 / 2820 240 / 240 Balance 2820 / 2820 240 / 240 Intake: IV 1999 / 1999 LR 1000 mL Inj 1,000 ML @ 100 2000 / 2000 mls/hr IV.CONT .Q10H [facility] Rx#: [id number] Oral 820 / 820 240 / 240 Other: # Voids 10 2 Narrative: NAD Abd: soft, mild post op ttp, inc c/d/i Results Procedures completed during hospitalization: Lap evacuation hemoperitoneum and tx bleeding ovarian cyst Labs on day of discharge: Labs from last 24 hours 04/05/18 04/03/18 04:37 10:26 WBC 12.3 H RBC 3.46 L Hgb 10.5 L Hct 30.5 L MCV 88.3 MCH 30.3 MCHC 34.3 RDW 13.0 Plt Count 251 MPV 9.2 MTS Gel Crossmatch See Detail - Impressions ITS Impressions Abdomen/Pelvis CT 04/02/18 10:01 CONCLUSION: 1. Significantly abnormal exam with a large amount of free fluid identified throughout the abdomen or pelvis. There is abnormal focus of extraluminal air adjacent to a dilated segment of the duodenum. Concern is for a ruptured ulcer. 2. Displaced tubal ligation clips within the anterior pelvis and the left occlusion device appears also displaced laterally within the pelvis. Discharge Plan - Discharge Disposition Patient Disposition: Discharge Home - Discharge Condition Condition: Stable - Discharge Order Discharge Orders: Discharge Order (Routine); Ordered 04/05/18 Ordered By: Reyes Duvall - Physicians Team Primary Care Provider: Jadiel May Attending Provider: Reyes Duvall
== END 2018-04-05 13:17 | disposition home or self-care (01) ==
LOC: PHED 09:40 → PHEDA 13:10 → N05 14:27 → N07 14:56
PROVIDERS: ADMIT Surgery; ATTEND Surgery
DX: D62 Acute posthemorrhagic anemia; M79.7 Fibromyalgia; N83.202 Unspecified ovarian cyst, left side; Z98.51 Tubal ligation status; K91.89 Other postprocedural complications and disorders of digestive system; K56.7 Ileus, unspecified; K21.9 Gastro-esophageal reflux disease without esophagitis; K66.1 Hemoperitoneum; F31.9 Bipolar disorder, unspecified